=== PATIENT | male | born 1990 | race Caucasian/White ===

== ENCOUNTER 2023-08-04 18:43 | Emergency (ER) | payer MEDICAID ==
[~2023-08-04] VITALS: Ht 172.7 cm; Wt 71.7 kg
[2023-08-04 21:00] VITALS: BP 130/84; PULSE 120; RESP 24; TEMP 97.4; O2SAT 99
== END 2023-08-04 20:10 | disposition left against medical advice (07) ==
LOC: MED 18:43
DX: L02.212 Cutaneous abscess of back [any part, except buttock and flank] (principal); Z53.21 Procedure and treatment not carried out due to patient leaving prior to being seen by health care provider
CPT/HCPCS: 99281